=== PATIENT | male | born 1965 | race Caucasian/White ===

== ENCOUNTER 2017-07-24 09:58 | Emergency (ER) | payer MEDICAID ==
[~2017-07-24] VITALS: Ht 170.2 cm; Wt 72.3 kg
[~2017-07-24 09:58] MED LIST: LINE600T36 PO; NORCO10T PO
[2017-07-24 11:37] VITALS: BP 128/75
== END 2017-07-24 11:37 | disposition home or self-care (01) ==
LOC: ER 09:58
DX: T16.2XXA Foreign body in left ear, initial encounter (principal); H61.22 Impacted cerumen, left ear; M19.90 Unspecified osteoarthritis, unspecified site; Z98.890 Other specified postprocedural states; Z56.0 Unemployment, unspecified
CPT/HCPCS: 69210; 99284

== ENCOUNTER 2025-05-02 17:59 | Emergency (ER) | payer MEDICAID ==
[~2025-05-02] VITALS: Ht 167.6 cm; Wt 77.3 kg
[~2025-05-02 17:59] MED LIST changes: +LINE600T12 PO; -LINE600T36 PO
[2025-05-02 18:10] VITALS: RESP 16
--- NOTE | 2025-05-02 18:39 | Physician Documentation ---
History of Present Illness ~ Chief Complaint: Penile Pain Stated Complaint: WOUND Time Seen by MD: 18:38 HPI 59 yo M presenting with a penis injury He tells me that he was putting up [place] lights, and was up above a PVC pipe that was over a fence post. He slipped and fell in his pants and penis got stuck in the PVC pipe temporarily. He has a wound to his penis that was bleeding a lot. No other injuries He is not circumcised Tetanus is up-to-date Medication Reconciliation Allergies: Coded Allergies: No Known Allergies (Unverified , 07/24/17) Scheduled Linezolid (Zyvox), 600 MG PO Q12H Scheduled PRN Hydrocodone Bit/Acetaminophen 10/325 MG* ([place] 10/325 MG*), 1 TAB PO Q8H PRN, (Reported) Past Medical History Past Medical History: Arthritis Past Surgical History: orthopedic surgeries Alcohol Use: Occasionally Drug Use: none Lives with: S/O Lives In: Home Occupation: unemployed, disabled Review of Systems Constitutional: Denies: fever Male Genitalia: Reports: penile sore Physical Exam Vital Signs: Heart Rate: 96, Respiratory Rate: 16, BP: 124/73, Pulse Oximetry: 96, Weight: 77.270 Physical Exam General: This is a pleasant but uncomfortable appearing middle-aged man Heart: Mild tachycardic, appears regular Lungs: normal work of breathing, normal oxygen saturation on room air : The patient declined a director emergency department for this exam. He has an uncircumcised penis. There is a 6 cm laceration with skin separation over the dorsal mid penis, minimal active bleeding. It appears to only involve the superficial layer of skin. No other lacerations to the penis or scrotum. No testicle tenderness on palpation Neuro: Alert and oriented Psychiatric: Anxious but is cooperative with exam Procedures Procedures Dorsal Penis Nerve Block with ring block The skin was cleaned with alcohol wipes. 0.5% bupivacaine without epinephrine was used, 2 cc were injected into the 2 o'clock position, and a further 2 cc injected into the ventral penis. Another 2 cc were injected in the 10 o'clock position and 2 more cc were injected in his the ventral penis. The patient tolerated this well, no complications. Good pain relief and anesthesia were obtained. Additional Procedures Additional Procedure Note Laceration repair: Indication: Penis laceration Consent: Verbal consent obtained from the patient Procedure: A nerve block was performed as above. The wound was irrigated with saline. The wound was approximated and sutured with 16 interrupted sutures using 5-0 Prolene. Bacitracin was placed on the wound and covered with a bandage. The patient tolerated well, no complications. Progress Results/Orders Results/Orders Completed Orders - ALYCIA ARIAS MD Ibuprofen Tablet (Motrin Tablet) (05/02/25 19:10) Medications Received in ER Medications (Trade) Dose Ordered Sig/Mariah Route PRN Reason Start Time Stop Time Status Last Admin Dose Admin (Motrin tablet) 800 mg ONCE ONCE PO 05/02/25 19:10 05/02/25 19:11 DC 05/02/25 19:16 800 MG Vital Signs 05/02/25 05/02/25 18:10 19:03 Pulse 96 98 Resp 16 B/P (MAP) 124/73 140/82 (101) Pulse Ox 96 97 Medical Decision Making Additional information obtaine: N/A Findings na Urinary Diff Dx:Considerations: Unlikely: Epididymitis Genital Diff Dx:Considerations: Unlikely: Hydrocele Additional Comment Differential includes laceration, urethral injury, testicular injury Assessment The patient presents with a penis injury after fall. On exam he has a laceration to the superficial skin on the dorsum of the penis. He was given ibuprofen. A dorsal nerve block was performed for pain control. The wound was cleaned and repaired with sutures. Tetanus is up-to-date. He is able to urinate. No evidence of more dangerous injury including urethral injury or straddle injury. No sign of testicular injury. He will be discharged home with wound care instructions and return for suture removal. Departure Time of Disposition: 21:17 Disposition: HOME / SELF CARE / HOMELESS Impression: Primary Impression: Laceration of skin of penis Condition: Improved Discharge Instructions: Laceration Care, Adult Referrals: NO PRIMARY CARE PROVIDER (PCP) Education Educated: Patient Educated regarding: diagnosis, treatment, need for follow up Signature Scribe Signature: na Attestation: ALYCIA Hernandez MD May 02, 2025 18:39
[2025-05-02] MEDS: ibuprofen tablet 400 MG TABLET PO ONE (19:16)
[2025-05-02 22:07] VITALS: BP 140/82; PULSE 92; O2SAT 97
== END 2025-05-02 22:08 | disposition home or self-care (01) ==
LOC: ER 18:00
DX: S31.21XA Laceration without foreign body of penis, initial encounter (principal); M19.90 Unspecified osteoarthritis, unspecified site; W01.0XXA Fall on same level from slipping, tripping and stumbling without subsequent striking against object, initial encounter; Y93.89 Activity, other specified; Y92.89 Other specified places as the place of occurrence of the external cause; Y99.8 Other external cause status
CPT/HCPCS: 12002; 99283; J7030; A6449

== ENCOUNTER 2025-05-22 16:45 | Emergency (ER) | payer MEDICAID ==
[~2025-05-22] VITALS: Ht 170.2 cm; Wt 71.7 kg
[2025-05-22 17:09] VITALS: BP 116/74; PULSE 102; RESP 15; TEMP 97.6; O2SAT 97
--- NOTE | 2025-05-22 18:25 | Physician Documentation ---
History of Present Illness ~ Chief Complaint: Suture Removal Stated Complaint: STITCH REMOVAL Time Seen by MD: 17:13 Primary Medical Doctor: Yasemin HPI 59-year-old male who is status post suture placement to his penis 10 days ago. Wounds healing well. Presents to the emergency department today without complaint of fever or dysuria. Patient is seeking suture removal. Tetanus Within 5 Years: Yes Medication Reconciliation Allergies: Coded Allergies: No Known Allergies (Unverified , 05/22/25) Scheduled Linezolid (Zyvox), 600 MG PO Q12H Scheduled PRN Hydrocodone Bit/Acetaminophen 10/325 MG* ([place] 10/325 MG*), 1 TAB PO Q8H PRN, (Reported) Past Medical History Past Medical History: Arthritis Past Surgical History: orthopedic surgeries Alcohol Use: Occasionally Drug Use: none Lives with: S/O Lives In: Home Occupation: unemployed, disabled Review of Systems All Other Systems at this time: Reviewed and Negative ROS See HPI Physical Exam Vital Signs: RN Vital Signs have been reviewed: Yes, Temperature: 97.6, Heart Rate: 102, Respiratory Rate: 15, BP: 116/74, Pulse Oximetry: 97, Weight: 71.700 General Appearance: alert, WD/WN, no apparent distress Cardiovascular: regular rate, rhythm Respiratory: no respiratory distress Chest: no accessory muscle use Gastrointestinal: tenderness Extremities: normal inspection Skin: warm/dry, other (Sutures to meatus clean dry and intact without signs of infection) Psychiatric: normal mood/affect Progress Results/Orders Results/Orders Vital Signs 05/22/25 17:09 Temp 97.6 Pulse 102 Resp 15 B/P (MAP) 116/74 Pulse Ox 97 Medical Decision Making Additional information obtaine: N/A Findings Wound is well healed. Several sutures fell out on their own. The remaining sutures removed without difficulty. Aftercare instructions provided. No signs of infection. Differential Dx:Considerations: Include: Suture removal Departure Disposition: HOME / SELF CARE / HOMELESS Impression: Primary Impression: Visit for suture removal Condition: Improved Discharge Instructions: Suture Removal, Care After Referrals: NO PRIMARY CARE PROVIDER (PCP) Education Educated: Patient Educated regarding: diagnosis, treatment, prognosis Signature Scribe Signature: . Attestation: . ALYCIA [place] PAC May 22, 2025 18:25
== END 2025-05-22 18:36 | disposition home or self-care (01) ==
LOC: ER 16:46
DX: T14.8XXD Other injury of unspecified body region, subsequent encounter (principal); M19.90 Unspecified osteoarthritis, unspecified site; Z79.899 Other long term (current) drug therapy; Z72.89 Other problems related to lifestyle; Z56.0 Unemployment, unspecified; Z98.890 Other specified postprocedural states; X58.XXXD Exposure to other specified factors, subsequent encounter
CPT/HCPCS: 99282